=== PATIENT | male | born 1975 | race Caucasian/White ===

== ENCOUNTER 2023-08-14 10:41 | Outpatient (REF) | payer SELFPAY | END 2023-08-14 10:42 | disposition home or self-care (01) | LOC: LBN 10:41 | PROVIDERS: Visit Provider Physician Assistant | DX: L98.8 Other specified disorders of the skin and subcutaneous tissue (principal); H60.501 Unspecified acute noninfective otitis externa, right ear | CPT/HCPCS: 87070; 87205 ==